=== PATIENT | male | born 1965 | race African-American/Black ===

== ENCOUNTER 2016-10-05 05:52 | Emergency (ER) | payer SELFPAY ==
[~2016-10-05] VITALS: Ht 175.3 cm; Wt 82.0 kg
[~2016-10-05 05:52] MED LIST: LISI-363 PO
[2016-10-05 05:55] VITALS: BP 143/97; PULSE 82; RESP 15; TEMP 98.2; O2SAT 97
--- NOTE | 2016-10-05 06:39 | PD ---
HPI Chief Complaint: Pain: Acute or Chronic Time Seen by Provider: 06:33 Travel History International Travel<30 days: No Contact w/Intl Traveler<30days: No Traveled to known affect area: No History of Present Illness HPI 51-year-old [id number] black male presents to emergency department with a two-week history of right shoulder pain. 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 He is been noticing pain in his right shoulder with movements over his head as well as behind his back. He denies any direct trauma. He denies any numbness, tingling or weakness. He states that he may have had a shoulder injury when he was in high school but does not recall whether it was his right or left. The patient also states that he's been having intermittent left groin pain now for several months. It comes and goes. It sharp in nature. Last only seconds at a time. He cannot recall any causative agent. There is no particular activity that brings the pain on her is or any activity that makes it better. He denies any fever chills. No nausea vomiting. No abdominal pain. No dysuria or frequency. No hematuria. No rashes or lesions. PFSH Past Medical History Narrative Medical hYPERTENSION, small bowel obstruction Hx Anticoagulant Therapy: No Blood Disorders: No Heart Rhythm Problems: No Cancer: No Cardiovascular Problems: Yes (HTN) High Cholesterol: No Chemotherapy: No Chest Pain: No Congestive Heart Failure: No Cerebrovascular Accident: No Diabetes: No Diminished Hearing: No Endocrine: No Gastrointestinal Disorders: Yes (PART OF SMALL INTESTINES REMOVED ) Genitourinary: No Hypertension: Yes (STATES TAKEN OFF MEDICATION PER MD AFTER WEIGHT LOSS) Immune Disorder: No Implanted Vascular Access Dvce: No Musculoskeletal: No Neurologic: No Psychiatric: No Reproductive: No Respiratory: No Immunizations Current: Yes (HEP B SERIES FINISHED) Tetanus Vaccination: < 5 Years Past Surgical History Abdominal Surgery: Yes (PART OF SMALL INTESTINE 10/2013) Appendectomy: Yes (10/2013) Pacemaker: No Other Surgery: Yes Social History Alcohol Use: Yes (occasionally) Tobacco Use: No Substance Use: No Allergies-Medications (Allergen,Severity, Reaction): Coded Allergies: Bees (Verified Allergy, Severe, ANAPHALAXIS, 10/05/16) Wasp (Verified Allergy, Severe, ANAPHALAXIS, 1/6/17) Reported Meds & Prescriptions Reported Meds & Active Scripts Active Lisinopril 20 mg (Lisinopril) 20 Mg Tab 40 Mg PO HS 30 Days Review of Systems Except as stated in HPI: all other systems reviewed are Neg Physical Exam Narrative GENERAL: Well-developed, well-nourished in no apparent distress. Nontoxic appearing. HEAD: Normocephalic, atraumatic. EYES: Pupils equal round and reactive. Extraocular motions intact. No scleral icterus. No injection or drainage. ENT: Nose clear. Throat without erythema, tonsillar hypertrophy or exudate. Uvula midline. Airway patent. NECK: Trachea midline. Supple, nontender, moves head freely. No central bony tenderness or spasm. CARDIOVASCULAR: Regular rate and rhythm without murmurs, gallops, or rubs. RESPIRATORY: Clear to auscultation. Breath sounds equal bilaterally. No wheezes , rales, or rhonchi. GASTROINTESTINAL: Abdomen soft, non-tender, nondistended. No hepato-splenomegaly , or palpable masses. No guarding. EXTREMITIES: No clubbing, cyanosis, or edema. Examination of the right upper extremity reveals pain to the coracoid process. He has pain with abduction of the shoulder. No pain in the acromioclavicular joint. He denies any pain in his elbow, wrist or hand. He has intact median/ulnar/radial nerves. Negative drop test. Positive impingement test. BACK: Nontender without deformity. No flank tenderness. NEUROLOGICAL: Awake, alert and oriented x 3 .Cranial nerves grossly intact. Motor and sensory grossly within normal limits. Normal speech. GENITOURINARY: Circumcised. Testes descended bilaterally without evidence of rotation. No lesions or erythema. No urethral discharge. The patient's examined standing up. There is no hernia. There is no reproducible pain on exam. Data Data Last Documented VS Vital Signs Date Time Temp Pulse Resp B/P Pulse Ox O2 Delivery O2 Flow Rate FiO2 10/05/16 05:55 98.2 82 15 143/97 97 Room Air MDM Medical Decision Making Medical Screen Exam Complete: Yes Emergency Medical Condition: Yes Medical Record Reviewed: Yes Differential Diagnosis Differential diagnoses: Sprain, strain, contusion, bursitis, hernia, testicular torsion Narrative Course The patient's exam is consistent with right shoulder bursitis. His groin pain is unrevealing. Etiology is unclear. I see no emergent medical condition. This right shoulder bursitis, right groin pain Diagnosis Primary Impression: Bursitis of right shoulder Additional Impression: Left groin pain Patient Instructions: General Instructions Additional Instructions: Rest. Limited activities. Sleep on her left side. 3 Advil every 6-8 hours. Ice packs for any acute pain and swelling. Follow-up with an orthopedist in one week. Follow-up with a primary care doctor in 1 week. Return to the ER if any problems. Med/Other Pt SpecificInfo: No Meds Exist/No RX given Disposition: 01 DISCHARGE HOME Condition: Stable Gonzalez Oliveros Oct 05, 2016 06:39
== END 2016-10-05 06:47 | disposition home or self-care (01) ==
LOC: NEPB 05:52
DX: M75.51 Bursitis of right shoulder (principal); R10.31 Right lower quadrant pain
CPT/HCPCS: 99283

== ENCOUNTER 2017-01-22 00:30 | Emergency (ER) | payer OTHER ==
[~2017-01-22] VITALS: Ht 175.3 cm; Wt 81.5 kg
[2017-01-22 00:33] VITALS: BP 131/76; PULSE 81; RESP 16; TEMP 98.2; O2SAT 96
[2017-01-22] MEDS ORDERED: LISI-515 PO (00:39)
[2017-01-22] MEDS ORDERED: AMLO10TA2 PO (00:53)
[2017-01-22] MEDS ORDERED: MONT10TA4 PO (00:53)
[2017-01-22] MEDS ORDERED: AMOX875T PO (00:53)
[2017-01-22] MEDS ORDERED: LOSA50TA PO (00:53)
[2017-01-22] MEDS ORDERED: CYCLOBENZAPRINE HCL 10 MG TAB PO ONE (01:15)
[2017-01-22] MEDS ORDERED: DEXAMETHASONE SOD PHOS 20 MG/5 ML VIAL IM ONE (01:15)
[2017-01-22] MEDS ORDERED: CYCL1TAB29 PO (01:18)
[2017-01-22] MEDS ORDERED: PRED-503 PO (01:18)
[2017-01-22] MEDS ORDERED: DICL75TA PO (01:18)
--- NOTE | 2017-01-22 01:23 | PD ---
HPI Chief Complaint: Pain: Acute or Chronic Time Seen by Provider: 01:19 Travel History International Travel<30 days: No Contact w/Intl Traveler<30days: No Traveled to known affect area: No History of Present Illness HPI 51-year-old black male presents to emergency department with complains of pain into his left leg. He states that he has had pain in his left groin in the past and had gone through therapy. He states now the last several days he has had pain down his left leg from the anterior lateral thigh into his calf. No pain in the foot. He states that he does not have any pain in his lower back. He has had some discomfort in his left buttocks. 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 He denies any trauma. He denies any heavy lifting. No bowel or bladder changes. He denies any alleviating or exacerbating factors. PFSH Past Medical History Narrative Medical Hypertension Hx Anticoagulant Therapy: No Blood Disorders: No Heart Rhythm Problems: No Cancer: No Cardiovascular Problems: Yes (HTN) High Cholesterol: No Chemotherapy: No Chest Pain: No Congestive Heart Failure: No Cerebrovascular Accident: No Diabetes: No Diminished Hearing: No Endocrine: No Gastrointestinal Disorders: Yes (PART OF SMALL INTESTINES REMOVED ) Genitourinary: No Hypertension: Yes Immune Disorder: No Implanted Vascular Access Dvce: No Musculoskeletal: No Neurologic: No Psychiatric: No Reproductive: No Respiratory: No Immunizations Current: Yes (HEP B SERIES FINISHED) Tetanus Vaccination: > 5 Years Influenza Vaccination: No Past Surgical History Narrative Surgical Appendectomy, small bowel resection Abdominal Surgery: Yes (PART OF SMALL INTESTINE 10/2013) Appendectomy: Yes (10/2013) Pacemaker: No Other Surgery: Yes Social History Alcohol Use: Yes (occasionally) Tobacco Use: No Substance Use: No Allergies-Medications (Allergen,Severity, Reaction): Coded Allergies: Bees (Verified Allergy, Severe, ANAPHALAXIS, 01/22/17) Wasp (Verified Allergy, Severe, ANAPHALAXIS, 01/22/17) Reported Meds & Prescriptions Reported Meds & Active Scripts Active Deltasone (Prednisone) 20 Mg Tab 20 Mg PO BID Flexeril (Cyclobenzaprine HCl) 10 Mg Tab 10 Mg PO TID Diclofenac Sodium DR (Diclofenac Sodium) 75 Mg Tabdr 75 Mg PO BID Reported Amoxicillin 875 Mg Tab 875 Mg PO BID Montelukast (Montelukast Sodium) 10 Mg Tab 10 Mg PO HS Losartan (Losartan Potassium) 50 Mg Tab 50 Mg PO DAILY Amlodipine (Amlodipine Besylate) 10 Mg Tab 10 Mg PO DAILY Review of Systems Except as stated in HPI: all other systems reviewed are Neg Physical Exam Narrative GENERAL: Well-developed, well-nourished in no acute distress. Nontoxic appearing. HEAD: Normocephalic, atraumatic. EYES: Pupils equal round and reactive. Extraocular motions intact. No scleral icterus. No injection or drainage. ENT: TMs clear without erythema. The external auditory canals clear. Nose: clear . Posterior pharynx is pink and moist. No tonsillar edema or exudate. Uvula midline. Airway patent. NECK: Trachea midline.Supple, nontender, moves head freely. No central bony tenderness or spasm. CARDIOVASCULAR: Regular rate and rhythm without murmurs, gallops, or rubs. RESPIRATORY: Clear to auscultation. Breath sounds equal bilaterally. No wheezes , rales, or rhonchi. GASTROINTESTINAL: Abdomen soft, non-tender, nondistended. No hepato-splenomegaly , or palpable masses. No guarding. EXTREMITIES: No clubbing, cyanosis, or edema. No joint tenderness, effusion, or edema noted. BACK: Nontender without deformity or crepitance. No flank tenderness. No central bony tenderness to palpation of the dorsal lumbar spine. Mild discomfort in the left buttocks. Negative straight leg raise. He has intact sensation with good distal pulses in his feet. He is able to bend forward and touch his toes. He complains of tingling and pain to the lateral thigh. Data Data Last Documented VS Vital Signs Date Time Temp Pulse Resp B/P Pulse Ox O2 Delivery O2 Flow Rate FiO2 01/22/17 00:33 98.2 81 16 131/76 96 Room Air Orders Dexamethasone Inj (Decadron Inj) (01/22/17 01:15) Cyclobenzaprine (Flexeril) (01/22/17 01:15) MDM Medical Decision Making Medical Screen Exam Complete: Yes Emergency Medical Condition: Yes Medical Record Reviewed: Yes Differential Diagnosis MDM: High Differential diagnoses: Fracture, sprain, strain, HNP, nerve or vascular injury , epidural abscess, pilonidal cyst Narrative Course Patient is complaining of radicular pain from his back. His exam is reassuring. I've explained to the patient that he may need to get further imaging of his back such as an MRI if his symptoms don't improve with this therapy. This is particularly important since he has had pain in his groin in the past requiring therapy. Patient given Decadron 10 mg IM, Naprosyn 500 mg and Flexeril 10 mg by mouth. This is lumbar radiculopathy Diagnosis Primary Impression: Left lumbar radiculopathy Patient Instructions: General Instructions Additional Instructions: Rest. Ice for the next 3 days followed by heat . Prednisone, Flexeril and Voltaren. Follow-up with a primary care doctor in one week. Return to the ER for emergencies. Med/Other Pt SpecificInfo: Prescription(s) given Scripts Prednisone (Deltasone)20 Mg Tab20 Mg PO BID #10 TAB Prov:Guerline Bardales DO 01/22/17 Cyclobenzaprine (Flexeril)10 Mg Tab10 Mg PO TID #30 TAB Prov:Guerline Bardales DO 01/22/[address] 75 Mg Tabdr75 Mg PO BID #20 TAB Prov:Guerline Bardales DO 01/22/17 Disposition: 01 DISCHARGE HOME Condition: Stable Gonzalez Oliveros Jan 22, 2017 01:23
== END 2017-01-22 01:43 | disposition home or self-care (01) ==
LOC: NEPK 00:30
DX: M79.652 Pain in left thigh (principal); M54.16 Radiculopathy, lumbar region; I10 Essential (primary) hypertension
CPT/HCPCS: 96372; 99283; J1100